=== PATIENT | female | born 1970 | race Hispanic/Latino ===

== ENCOUNTER 2018-06-25 11:37 | Emergency (ER) | payer SELFPAY ==
--- NOTE | 2018-06-25 12:09 | RAD ---
FRadiograph chest 2 views: 06/25/2018 HISTORY: 48-year-old female with dyspnea and cough COMPARISON: None FINDINGS: There is an approximately 0.7 cm irregularly shaped right upper lobe pulmonary nodule. No consolidati on, pulmonary edema, cardiomegaly, pneumothorax, or pleural effusion. IMPRESSION: 1. Right upper lobe small pulmonary nodule, probably a calcified granuloma, but not certain. Consider chest CT if there are no outside prior studies. 2. No acute disease.
== END 2018-06-25 12:23 | disposition home or self-care (01) ==
LOC: SCSER 11:37
DX: J06.9 Acute upper respiratory infection, unspecified (principal); R91.1 Solitary pulmonary nodule; J45.909 Unspecified asthma, uncomplicated; E11.9 Type 2 diabetes mellitus without complications
CPT/HCPCS: 71046; 94640; J7620

== ENCOUNTER 2019-12-29 21:25 | Emergency (ER) | payer SELFPAY ==
[~2019-12-29 21:25] MED LIST: Iopamidol-370 76% 500 ML 1 ML ONE
[2019-12-29] MEDS ORDERED: Albuterol Sulfate 2.5 mg/3 ml Neb ONE ×2 (22:25→22:26)
[2019-12-29] MEDS ORDERED: Dexamethasone 10 MG/ML VIAL ONE (22:40)
[2019-12-29] MEDS ORDERED: Magnesium 2 GM/50 ML BAG (IN WATER) ONE (22:40)
[2019-12-29 22:58] LABS: Mean Corpuscular HGB CONC 30.2 g/dL (32.0-36.0); Mean Corpuscular Hemoglobin 21.4 pg (27.0-31.0); Mean Corpuscular Volume 70.7 fL (78.0-98.0); Mean Platelet Volume 9.6 fL (7.4-10.4); Platelet Count 300 thou/uL (130-400); RBC Distribution Width 16.3 % (11.5-14.5); Red Blood Cell (RBC) Count 4.66 mill/uL (4.20-5.40); White Blood Cell (WBC) Count 10.1 thou/uL (4.8-10.8)
--- NOTE | 2019-12-29 22:59 | RAD ---
XR Chest 1 View Portable HISTORY: Shortness of breath and wheezing, asthma COMPARISON: 06/25/2018 FINDINGS: The heart size is normal. The lungs are well expanded without focal areas of consolidation, pneumothorax or pleural effusions. IMPRESSION: No radiographic evidence of acute cardiopulmonary process.
[2019-12-29 23:15] LABS: #Basophils 0.1 thou/uL (0.0-0.2); #Lymphocytes 2.5 thou/uL (1.20-3.40); #Monocytes 0.7 thou/uL (0.11-0.59); #Neutrophils 5.8 thou/uL (1.40-6.50); %Basophils 1.1 % (0.0-1.0); %Eosinophils 9.9 % (0.0-10.0); %Lymphocytes 24.5 % (21.0-51.0); %Monocytes 6.8 % (0.0-10.0); %Neutrophils 57.7 % (42.0-75.0); Hypochromia SLIGHT = 6-15 cells (100X) (0-5/hpf); MDiff Complete? YES; Microcytosis SLIGHT = 6-15 cells (100X) (0-5/hpf)
[2019-12-29 23:18] LABS: ALT (SGPT) 12 U/L (8-55); AST (SGOT) 15 U/L (5-34); Albumin 3.9 g/dL (3.5-5.0); Alkaline Phosphatase 64 U/L (40-110); Anion Gap 12 mmol/L (10-20); BUN (Urea Nitrogen) 15 mg/dL (7.0-18.7); Bilirubin, Total 0.7 mg/dL (0.2-1.2); CK (CPK) 137 U/L (29-168); Calc. Creatinine Clearance 0 mL/min (70-130); Calcium 8.4 mg/dL (7.8-10.44); Carbon Dioxide 27 mmol/L (22-29); Chloride 103 mmol/L (98-107); Estimated GFR-MDRD 87; Globulin 3.7 g/dL (2.4-3.5); Glucose 139 mg/dL (70-105); Lipase 27 U/L (8-78); Potassium 3.7 mmol/L (3.5-5.1); Protein, Total 7.6 g/dL (6.0-8.3); Sodium 138 mmol/L (136-145)
--- NOTE | 2019-12-29 23:57 | CT ---
CT PULMONARY ANGIOGRAM WITH IV CONTRAST AND 3-D POSTPROCESSING: HISTORY:Chest pain FINDINGS: The central pulmonary arterial vasculature is without filling defects to suggest pulmonary embolism. The peripheral branches are suboptimally opacified for satisfactory evaluation. Peripheral pulmonary embolism cannot be excluded on this exam. The thoracic aorta is well opacified without aneurysm or dissection. No pleural or pericardial effusions are seen. No pneumothoraces, focal areas of consolidation or lung masses are noted. There is a calcified granul ingris in the superior segment of the right lower lobe and a 5-6 mm solid peripheral nodule in the posterior aspect of the superior segment of the left lower lobe There are degenerative changes in the spine. Upper abdominal tomograms demonstrate changes of cholecystectomy. IMPRESSION: 1. No CT evidence of central pulmonary embolism. 2. A follow-up CT scan of the chest should be performed in 12 months to monitor the left lung nodule
== END 2019-12-30 00:30 | disposition home or self-care (01) ==
LOC: ERS 21:25
DX: J45.901 Unspecified asthma with (acute) exacerbation (principal); E11.9 Type 2 diabetes mellitus without complications; I10 Essential (primary) hypertension; Z79.84 Long term (current) use of oral hypoglycemic drugs; Z79.899 Other long term (current) drug therapy
CPT/HCPCS: 71045; 71275; 80053; 82550; 83690; 83880; 84484; 85025; 85379; 93005; 94644; 96365; 96375; J1100; J3475; J7611; J7620; Q9967

== ENCOUNTER 2022-11-21 11:52 | Emergency (ER) | payer SELFPAY ==
[2022-11-21] MEDS ORDERED: Ketorolac Tromethamine 30 MG/ML VIAL ONE (12:58)
== END 2022-11-21 14:18 | disposition home or self-care (01) ==
LOC: ERS 11:52
DX: M25.511 Pain in right shoulder (principal); R03.0 Elevated blood-pressure reading, without diagnosis of hypertension; E11.9 Type 2 diabetes mellitus without complications; I10 Essential (primary) hypertension; Z79.84 Long term (current) use of oral hypoglycemic drugs
CPT/HCPCS: 73050; 96372; J1885